=== PATIENT | male | born 1965 | race Caucasian/White ===

== ENCOUNTER 2020-01-14 11:26 | Inpatient (IN) | payer BC, OTHER ==
[2020-01-14] MEDS ORDERED: Morphine 4 MG/ML Syringe IVPUSH ONE ×2 (11:42→13:41)
[2020-01-14] MEDS ORDERED: Ondansetron 4 MG/2 ML SDV IVPUSH ONE (11:42)
[2020-01-14] MEDS ORDERED: Sodium Chloride 0.9% 10 ML Syringe FLUSH PRN (11:42)
[2020-01-14] MEDS ORDERED: Sodium Chloride 0.9% 2.5 ML Syringe FLUSH PRN (11:42)
[2020-01-14] MEDS ORDERED: Famotidine 20 MG/2 ML SDV IVPUSH ONE (11:44)
--- NOTE | 2020-01-14 11:48 | EDM.PDOC ---
ED HPI GENERAL MEDICAL PROBLEM - General Chief Complaint: Abdominal Pain Stated Complaint: EMS ARRIVAL Time Seen by Provider: 01/14/20 11:35 - History of Present Illness INITIAL COMMENTS - FREE TEXT/NARRATIVE: 54-year-old male who denies past history who is presenting with epigastric pain. Patient reports 8 out of 10 burning and wiggling epigastric pain that does not radiate but is associated with nausea and one episode of clear emesis patient's last bowel movement was sometime yesterday doesn't recall any blood or black tarry contents. Patient denies fevers or chills he denies chest pain or fever. He reports that he has had some less severe episodes on and off for some time but it has never been this bad he can't recall any specific triggers for these episodes. Right now no exacerbating or alleviating factors or other associated symptoms. Patient denies a prior history of abdominal surgery he does smoke regularly. Denies other drugs. Abdominal Pain Score (Numeric/FACES): 9 - Related Data Allergies Allergy/AdvReac Type Severity Reaction Status Date / Time No Known Allergies Allergy Verified 01/14/20 11:43 Home Meds: Home Meds . [No Known Home Meds] 07/30/15 [History] Past Medical History - Past Surgical History Other Musculoskeletal Surgeries/Procedures:: rt ankle surg. Social & Family History - Family History Family Medical History: Noncontributory ED ROS GENERAL - Review of Systems Review Of Systems: See Below Free Text/Narrative/Comment: General: No fever. Skin: No rash. Eyes: No vision problems. ENT: No sore throat. Neck: No neck stiffness. Respiratory: No shortness of breath. Cardiac: No chest pain. Gastrointestinal: No nausea, vomiting or abdominal pain. Urinary: No dysuria. Musculoskeletal: No myalgias/arthralgias. Neurologic: 3 times over the last several weeks he will experience a sudden episode of right sided face and body numbness that lasts a few minutes before resolving spontaneously there is no clear trigger he last experienced this type of episode yesterday. ED EXAM, GENERAL - Physical Exam Exam: See Below Free Text/Narrative:: General Appearance: No acute distress, appears comfortable HEENT: Normocephalic/atraumatic, sclera anicteric, mucous membranes moist Neck: Normal range of motion Chest and Lungs: Bilateral breath sounds, clear to auscultation Cardiovascular: Regular rate and rhythm, no murmur Abdomen: Soft, nondistended, epigastric and right upper quadrant tenderness without guarding or rebound. Musculoskeletal: No edema or tenderness Neurologic: Awake, alert, no obvious deficits, moving all extremities Psychiatric: Appropriate, cooperative Course - Vital Signs Last Recorded V/S: Last Vital Signs Temp 98.7 F 01/14/20 11:44 Pulse 61 01/14/20 11:44 Resp 17 01/14/20 11:44 BP 146/68 H 01/14/20 11:44 Pulse Ox 98 01/14/20 11:44 - Orders/Labs/Meds Orders: Active Orders 24 hr Category Date Time Status EKG Documentation Completion [RC] STAT Care 01/14/20 11:43 Active Sodium Chloride 0.9% [Saline Flush] Med 01/14/20 11:42 Active 10 ml FLUSH ASDIRECTED PRN Sodium Chloride 0.9% [Saline Flush] Med 01/14/20 11:42 Active 2.5 ml FLUSH ASDIRECTED PRN Saline Lock Insert [OM.PC] Stat Oth 01/14/20 11:42 Ordered Medication Orders Sodium Chloride (Saline Flush) 10 ml FLUSH ASDIRECTED PRN PRN Reason: Keep Vein Open Last Admin: 01/14/20 11:58 Dose: 10 ml Documented by: PHILLIP Sodium Chloride (Saline Flush) 2.5 ml FLUSH ASDIRECTED PRN PRN Reason: Keep Vein Open Last Admin: 01/14/20 11:58 Dose: 2.5 ml Documented by: PHILLIP Labs: Laboratory Tests 01/14/20 01/14/20 Range/Units 11:58 11:58 WBC 10.66 (4.0-11.0) K/uL RBC 4.59 (4.50-5.90) M/uL Hgb 14.5 (13.0-17.0) g/dL Hct 44.2 (38.0-50.0) % MCV 96.3 (80.0-98.0) fL MCH 31.6 (27.0-32.0) pg MCHC 32.8 (31.0-37.0) g/dL RDW Std Deviation 45.8 (28.0-62.0) fl RDW Coeff of Jenny 13 (11.0-15.0) % Plt Count 368 (150-400) K/uL MPV 9.50 (7.40-12.00) fL Neut % (Auto) 65.7 (48.0-80.0) % Lymph % (Auto) 23.8 (16.0-40.0) % [place] % (Auto) 9.6 (0.0-15.0) % Eos % (Auto) 0.8 (0.0-7.0) % Baso % (Auto) 0.1 (0.0-1.5) % Neut # (Auto) 7.0 H (1.4-5.7) K/uL Lymph # (Auto) 2.5 H (0.6-2.4) K/uL [place] # (Auto) 1.0 H (0.0-0.8) K/uL Eos # (Auto) 0.1 (0.0-0.7) K/uL Baso # (Auto) 0.0 (0.0-0.1) K/uL Nucleated RBC % 0.0 /100WBC Nucleated RBCs # 0 K/uL Sodium 137 (136-148) mmol/L Potassium 4.6 (3.5-5.1) mmol/L Chloride 102 (98-107) mmol/L Carbon Dioxide 28.3 (21.0-32.0) mmol/L BUN 14 (7.0-18.0) mg/dL Creatinine 1.0 (0.8-1.3) mg/dL Est Cr Clr Drug Dosing 82.02 mL/min Estimated GFR (MDRD) > 60.0 ml/min Glucose 100 (74-106) mg/dL Calcium 9.0 (8.5-10.1) mg/dL Total Bilirubin 0.2 (0.2-1.0) mg/dL AST 13 L (15-37) IU/L ALT 22 (14-63) IU/L Alkaline Phosphatase 117 H (46-116) U/L Troponin I < 0.050 (0.000-0.056) ng/mL Total Protein 7.5 (6.4-8.2) g/dL Albumin 3.8 (3.4-5.0) g/dL Globulin 3.7 (2.6-4.0) g/dL Albumin/Globulin Ratio 1.0 (0.9-1.6) Lipase 747 H (73-393) U/L Meds: Medications Generic Name Dose Route Start Last Admin Trade Name Andres PRN Reason Stop Dose Admin Sodium Chloride 10 ml 01/14/20 11:42 01/14/20 11:58 Saline Flush FLUSH 10 ml ASDIRECTED PRN Administration Keep Vein Open Sodium Chloride 2.5 ml 01/14/20 11:42 01/14/20 11:58 Saline Flush FLUSH 2.5 ml ASDIRECTED PRN Administration Keep Vein Open Discontinued Medications Generic Name Dose Route Start Last Admin Trade Name Andres PRN Reason Stop Dose Admin Famotidine 20 mg 01/14/20 11:44 01/14/20 11:57 Pepcid IVPUSH 01/14/20 11:45 20 mg ONETIME ONE Administration Morphine Sulfate 4 mg 01/14/20 11:42 01/14/20 11:57 Morphine IVPUSH 01/14/20 11:43 4 mg ONETIME ONE Administration Ondansetron HCl 4 mg 01/14/20 11:42 01/14/20 11:58 Zofran IVPUSH 01/14/20 11:43 4 mg ONETIME ONE Administration Departure - Departure Time of Disposition: 13:24 Disposition: Admitted As Inpatient 64 Condition: Good Clinical Impression: Acute pancreatitis - Discharge Information *PRESCRIPTION DRUG MONITORING PROGRAM REVIEWED*: Not Applicable *COPY OF PRESCRIPTION DRUG MONITORING REPORT IN PATIENT RED: Not Applicable Forms: ED Department Discharge Sepsis Event Note (ED) - Focused Exam Vital Signs: Vital Signs Temp Pulse Resp BP Pulse Ox 01/14/20 11:44 98.7 F 61 17 146/68 H 98 - My Orders Last 24 Hours: My Active Orders 01/14/20 11:42 Sodium Chloride 0.9% [Saline Flush] 10 ml FLUSH ASDIRECTED PRN Sodium Chloride 0.9% [Saline Flush] 2.5 ml FLUSH ASDIRECTED PRN Saline Lock Insert [OM.PC] Stat 01/14/20 11:43 EKG Documentation Completion [RC] STAT - Assessment/Plan Last 24 Hours: My Active Orders 01/14/20 11:42 Sodium Chloride 0.9% [Saline Flush] 10 ml FLUSH ASDIRECTED PRN Sodium Chloride 0.9% [Saline Flush] 2.5 ml FLUSH ASDIRECTED PRN Saline Lock Insert [OM.PC] Stat 01/14/20 11:43 EKG Documentation Completion [RC] STAT Assessment:: 54-year-old male presenting with epigastric pain as described. Ulcer disease however multiple other etiologies considered ACS felt very unlikely but EKG and troponin pending chest x-ray to evaluate mediastinum and exclude pneumonia pneumothorax etc. but these are also felt unlikely. Right upper quadrant ultrasound to evaluate for biliary pathology. If patient has a white count and this is unremarkable would consider CT scan at that time. Regarding his neurologic symptoms right now his neurologic exam is normal but CT scan of the brain is been added. Patient does have some stroke risk factors and TIA may need to be considered however he has no symptoms at this time we can readdress this when his abdominal complaint is complete. Pt's labs demonstrate findings of acute pancreatitis. US is w/out findings of biliary pathology, no CBD dilitation etc. No signs of pseudocyst noted on pancreatic portion of US. WBC is good, no fever, nothing that suggests necrosis. Will push patient some on etOH use. PT will likely need admission, NPO, IVF but will readdress. 1322: Patient is adamant that he only drinks alcohol very occasionally and has not had alcohol for several months. Patient discussed in full with the hospitalist team and will admit for acute pancreatitis.
--- NOTE | 2020-01-14 12:33 | CR ---
Indication: Epigastric pain shortness of breath Technique: PA and lateral views chest Comparison: None Findings: There is mild hyperinflation and chronic interstitial change with biapical pleural thickening. There is no dense consolidation, effusion, or pneumothorax. The cardiac silhouette is within normal limits. The bony thorax is grossly intact. Impression: Mild chronic interstitial changes and hyperinflation without acute cardiopulmonary abnormality. Dictated by Tonny Maurice MD @ Jan 14 2020 12:31PM Signed by Dr. Tonny Maurice @ Jan 14 2020 12:33PM
--- NOTE | 2020-01-14 12:40 | US ---
Indication: Right upper quadrant abdomen pain TECHNIQUE: Ultrasound abdomen limited. Sonographic images of the right upper quadrant were obtained using daigle-scale and color Doppler images. Comparison: None FINDINGS: Liver: Normal in size and echotexture. No masses. No intrahepatic biliary dilatation. Gallbladder: No stones or sludge. Normal wall thickness. No pericholecystic fluid. Common bile duct: 2.3 mm. Pancreas: Normal. The IVC and aorta are otherwise grossly unremarkable. The right kidney is grossly unremarkable in echotexture without evidence of hydronephrosis or shadowing calculus. Incidental note is made of somewhat fluid distended transverse colon in the central upper abdomen. Impression: Unremarkable right upper quadrant ultrasound. Incidental note made of mildly fluid distended colon within the central upper abdomen. Correlate with history of colitis symptoms if there is persistent concern. Dictated by Tonny Maurice MD @ Jan 14 2020 12:33PM Signed by Dr. Tonny Maurice @ Jan 14 2020 12:39PM
[2020-01-14 12:44] LABS: BLOOD UREA NITROGEN,BUN 14 mg/dL (7.0-18.0); CARBON DIOXIDE,CO2 28.3 mmol/L (21.0-32.0); CHLORIDE,CL 102 mmol/L (98-107); GLUCOSE RANDOM 100 mg/dL (74-106); LIPASE 747 U/L (73-393); POTASSIUM,K 4.6 mmol/L (3.5-5.1); SODIUM,NA 137 mmol/L (136-148)
--- NOTE | 2020-01-14 12:46 | CT ---
INDICATION: Right-sided numbness. TECHNIQUE: CT head without contrast. COMPARISON: None. FINDINGS: CSF spaces: Within normal limits for age. Brain parenchyma: The daigle-white differentiation is normal. No sign of mass, hemorrhage, or midline shift. Skull base and calvarium: The visualized paranasal sinuses and mastoid air cells demonstrate no acute or significant findings. The visualized orbits are grossly unremarkable. No skull fractures. IMPRESSION: No acute intracranial abnormality. Please note that all CT scans at this facility use dose modulation, iterative reconstruction, and/or weight-based dosing when appropriate to reduce radiation dose to as low as reasonably achievable. Dictated by Jim Simms MD @ Jan 14 2020 12:42PM Signed by Dr. Jim Simms @ Jan 14 2020 12:46PM
[2020-01-14] MEDS ORDERED: Ondansetron 4 MG/2 ML SDV IVPUSH PRN (15:20)
[2020-01-14] MEDS ORDERED: Albuterol/Ipratropium 3.0-0.5 MG/3 ML Neb Soln NEB PRN (15:20)
--- NOTE | 2020-01-14 15:23 | PCM.HP.2 ---
H&P History of Present Illness - General Date of Service: 01/14/20 Admit Problem/Dx: Admission Diagnosis/Problem Admission Diagnosis/Problem Acute pancreatitis - History of Present Illness Initial Comments - Free Text/Narative: 54-year-old male with no significant PMH presenting with epigastric abdominal pain. Pain is 8/10 in proportion and is non-radiating in nature. Pain started 4 am this morning suddenly, it is associated with nausea and one episode of clear emesis, patient's last bowel movement was sometime yesterday doesn't recall any blood or black tarry contents. Patient states he has some dull pain last few weeks but he didn't think much of it Patient denies fevers or chills he denies chest pain or fever. Right now no exacerbating or alleviating factors or other associated symptoms. Patient denies a prior history of abdominal surgery he does smoke regularly. Denies other drugs, or alcohol abuse. LIpase was evleated, US abdomen did show possible colitis, Liver was unremarkable. Patient was admitted for further care, Abdominal Pain Score (Numeric/FACES): 9 - Related Data Allergies/Adverse Reactions: Allergies Allergy/AdvReac Type Severity Reaction Status Date / Time No Known Allergies Allergy Verified 01/14/20 16:21 Home Medications: Home Meds . [No Known Home Meds] 07/30/15 [History] Past Medical History - Infectious Disease History Infectious Disease History: Reports: None - Past Surgical History Other Musculoskeletal Surgeries/Procedures:: rt ankle surg. Social & Family History - Family History Family Medical History: Noncontributory - Tobacco Use Tobacco Use Status *Q: Unknown Ever Used Tobacco - Caffeine Use Caffeine Use: Reports: None H&P Review of Systems - Review of Systems: Review Of Systems: See Below General: Reports: Weakness. Denies: Fever, Chills, Malaise, Fatigue, Night Sweats Pulmonary: Denies: Shortness of Breath, Wheezing Cardiovascular: Denies: Chest Pain, Palpitations, Dyspnea on Exertion, Orthopnea Gastrointestinal: Reports: Abdominal Pain, Nausea, Vomiting. Denies: Anorexia, Black Stool, Bloody Stool, Constipation, Decreased Appetite Genitourinary: Denies: Dysuria, Frequency, Burning Musculoskeletal: Denies: Neck Pain, Shoulder Pain, Arm Pain Skin: Denies: Cyanosis, Jaundice, Mottled, Pallor Psychiatric: Denies: Confusion, Depression, Mood Lability Exam - Exam Exam: See Below - Vital Signs Vital Signs: Last Vital Signs Temp 36.3 C 01/14/20 13:39 Pulse 62 01/14/20 14:08 Resp 16 01/14/20 13:39 BP 153/87 H 01/14/20 14:08 Pulse Ox 97 01/14/20 14:08 Weight: 70.307 kg - Exam General: Alert, Oriented Neck: Supple, Trachea Midline Lungs: Clear to Auscultation, Normal Respiratory Effort Cardiovascular: Regular Rate, Regular Rhythm, Normal S1, Normal S2 GI/Abdominal Exam: Soft, No Distention, Tender, Abnormal Bowel Sounds. No: Normal Bowel Sounds, Non-Tender, No Organomegaly, Distended, Hepatomegaly, Splenomegaly (Male) Exam: No: Normal Inspection, Normal Prostate - Patient Data Lab Results Last 24 hrs: Laboratory Results - last 24 hr 01/14/20 01/14/20 01/14/20 Range/Units 11:58 11:58 13:57 WBC 10.66 (4.0-11.0) K/uL RBC 4.59 (4.50-5.90) M/uL Hgb 14.5 (13.0-17.0) g/dL Hct 44.2 (38.0-50.0) % MCV 96.3 (80.0-98.0) fL MCH 31.6 (27.0-32.0) pg MCHC 32.8 (31.0-37.0) g/dL RDW Std Deviation 45.8 (28.0-62.0) fl RDW Coeff of Jenny 13 (11.0-15.0) % Plt Count 368 (150-400) K/uL MPV 9.50 (7.40-12.00) fL Neut % (Auto) 65.7 (48.0-80.0) % Lymph % (Auto) 23.8 (16.0-40.0) % [place] % (Auto) 9.6 (0.0-15.0) % Eos % (Auto) 0.8 (0.0-7.0) % Baso % (Auto) 0.1 (0.0-1.5) % Neut # (Auto) 7.0 H (1.4-5.7) K/uL Lymph # (Auto) 2.5 H (0.6-2.4) K/uL [place] # (Auto) 1.0 H (0.0-0.8) K/uL Eos # (Auto) 0.1 (0.0-0.7) K/uL Baso # (Auto) 0.0 (0.0-0.1) K/uL Nucleated RBC % 0.0 /100WBC Nucleated RBCs # 0 K/uL Sodium 137 (136-148) mmol/L Potassium 4.6 (3.5-5.1) mmol/L Chloride 102 (98-107) mmol/L Carbon Dioxide 28.3 (21.0-32.0) mmol/L BUN 14 (7.0-18.0) mg/dL Creatinine 1.0 (0.8-1.3) mg/dL Est Cr Clr Drug Dosing 82.02 mL/min Estimated GFR (MDRD) > 60.0 ml/min Glucose 100 (74-106) mg/dL Calcium 9.0 (8.5-10.1) mg/dL Total Bilirubin 0.2 (0.2-1.0) mg/dL AST 13 L (15-37) IU/L ALT 22 (14-63) IU/L Alkaline Phosphatase 117 H (46-116) U/L Troponin I < 0.050 (0.000-0.056) ng/mL Total Protein 7.5 (6.4-8.2) g/dL Albumin 3.8 (3.4-5.0) g/dL Globulin 3.7 (2.6-4.0) g/dL Albumin/Globulin Ratio 1.0 (0.9-1.6) Lipase 747 H (73-393) U/L SARS-CoV-2 RNA (CHRYSTAL) NEGATIVE (NEGATIVE) Result Diagrams: 01/14/20 11:58 01/14/20 11:58 Sepsis Event Note - Evaluation Sepsis Screening Result: No Definite Risk - Focused Exam Vital Signs: Vital Signs Temp Pulse Resp BP Pulse Ox 01/14/20 14:08 62 153/87 H 97 01/14/20 13:39 36.3 C 53 L 16 165/78 H 98 01/14/20 11:44 37.1 C 61 17 146/68 H 98 - Problem List (1) Colitis SNOMED Code(s): 46716045 ICD Code: K52.9 - NONINFECTIVE GASTROENTERITIS AND COLITIS, UNSPECIFIED Status: Acute Current Visit: Yes (2) Acute pancreatitis SNOMED Code(s): 498223345 ICD Code: K85.90 - ACUTE PANCREATITIS WITHOUT NECROSIS OR INFECTION, UNSP Status: Acute Current Visit: Yes Problem List Initiated/Reviewed/Updated: Yes Orders Last 24hrs: Active Orders 24 hr Category Date Time Status Patient Status [ADT] Routine ADT 01/14/20 13:25 Active Ambulate [RC] ASDIRECTED Care 01/14/20 15:14 Ordered Antiembolic Devices [RC] PER UNIT ROUTINE Care 01/14/20 15:22 Ordered Oxygen Therapy [RC] PRN Care 01/14/20 15:14 Ordered Pulse Oximetry [RC] PRN Care 01/14/20 15:14 Ordered RT Aerosol Therapy [RC] ASDIRECTED Care 01/14/20 15:23 Ordered VTE/DVT Education [RC] PER UNIT ROUTINE Care 01/14/20 15:14 Ordered Vital Signs [RC] Q4H Care 01/14/20 15:14 Ordered Nothing per Oral Now Diet [DIET] Diet 01/14/20 Dinner Ordered Albuterol/Ipratropium [DuoNeb 3.0-0.5 MG/3 ML] Med 01/14/20 15:20 Ordered 3 ml NEB Q4HRRT PRN Lactated Ringers @ 125 MLS/HR(1000ml) Med 01/14/20 15:30 Ordered Lactated Ringers [Ringers, Lactated] 1,000 ml IV ASDIRECTED Morphine Med 01/14/20 15:20 Ordered 2 mg IVPUSH Q4H PRN Ondansetron [Zofran] Med 01/14/20 15:20 Ordered 4 mg IVPUSH Q4H PRN Pantoprazole [ProTONIX IV] Med 01/15/20 09:00 Ordered 40 mg IV DAILY Sodium Chloride 0.9% [Saline Flush] Med 01/14/20 11:42 Active 10 ml FLUSH ASDIRECTED PRN Sodium Chloride 0.9% [Saline Flush] Med 01/14/20 11:42 Active 2.5 ml FLUSH ASDIRECTED PRN Saline Lock Insert [OM.PC] Stat Oth 01/14/20 11:42 Ordered Sequential Compression Device [OM.PC] Per Unit Routine Oth 01/14/20 15:15 Orde red Resuscitation Status Routine Resus Stat 01/14/20 15:14 Ordered Medication Orders Sodium Chloride (Saline Flush) 10 ml FLUSH ASDIRECTED PRN PRN Reason: Keep Vein Open Last Admin: 01/14/20 11:58 Dose: 10 ml Documented by: PHILLIP Sodium Chloride (Saline Flush) 2.5 ml FLUSH ASDIRECTED PRN PRN Reason: Keep Vein Open Last Admin: 01/14/20 11:58 Dose: 2.5 ml Documented by: MURPAT Assessment/Plan Comment:: 54 y/o M admitted for abdominal pain Elevated lipase from Possible colitis vs pancreatitis US abdomen noted NPO for now IV fluids Morphine for pain SCD fpr DVT ppx Zofran for N/V
[2020-01-14] MEDS: Lactated Ringers 1,000 ML IV SCH (16:09)
[2020-01-14] MEDS ORDERED: FLU VACC QS2020-21(6MOS UP)/PF 60 MCG/0.5 ML SYRINGE IM ONE (16:30)
[2020-01-14] MEDS ORDERED: metroNIDAZOLE/Normal Saline 500 MG in Premix Bag 1 BAG IV SCH (17:45)
[2020-01-14] MEDS: Ciprofloxacin in D5W 400 MG in Premix Bag 1 BAG IV SCH ×2 (18:19)
[2020-01-14] MEDS: Morphine 10 MG/ML Syringe IVPUSH PRN (18:22)
[2020-01-14] MEDS: Nicotine 14 MG/24 Hr Patch TRDERM SCH (18:24)
[2020-01-14] MEDS: metroNIDAZOLE/Normal Saline 500 MG in Premix Bag 1 BAG IV SCH (20:06)
[2020-01-15] MEDS: Morphine 10 MG/ML Syringe IVPUSH PRN ×2 (03:38→11:00)
[2020-01-15] MEDS: metroNIDAZOLE/Normal Saline 500 MG in Premix Bag 1 BAG IV SCH ×2 (03:42→11:20)
[2020-01-15] MEDS: Ciprofloxacin in D5W 400 MG in Premix Bag 1 BAG IV SCH ×4 (05:38→19:13)
[2020-01-15] MEDS: Lactated Ringers 1,000 ML IV SCH (05:38)
[2020-01-15 07:10] LABS: BLOOD UREA NITROGEN,BUN 11 mg/dL (7.0-18.0); CARBON DIOXIDE,CO2 29.1 mmol/L (21.0-32.0); CHLORIDE,CL 103 mmol/L (98-107); GLUCOSE RANDOM 92 mg/dL (74-106); LIPASE 119 U/L (73-393); POTASSIUM,K 3.5 mmol/L (3.5-5.1); SODIUM,NA 138 mmol/L (136-148)
[2020-01-15] MEDS ORDERED: Pantoprazole 40 MG Vial IV SCH (09:00)
[2020-01-15] MEDS ORDERED: FLU VACC QS2020-21(6MOS UP)/PF 60 MCG/0.5 ML SYRINGE IM ONE (09:00)
[2020-01-15] MEDS: Nicotine 14 MG/24 Hr Patch TRDERM SCH (09:32)
--- NOTE | 2020-01-15 13:42 | PCM.PN ---
<Linda Ko - Last Filed: 01/15/20 13:36> - General Info Date of Service: 01/15/20 - Review of Systems General: Reports: No Symptoms HEENT: Reports: No Symptoms Pulmonary: Reports: No Symptoms Cardiovascular: Reports: No Symptoms Gastrointestinal: Reports: Abdominal Pain. Denies: Nausea, Vomiting Genitourinary: Reports: No Symptoms Musculoskeletal: Reports: No Symptoms Skin: Reports: No Symptoms Neurological: Reports: No Symptoms Psychiatric: Reports: No Symptoms - Patient Data Vitals - Most Recent: Last Vital Signs Temp 97.8 F 01/15/20 12:00 Pulse 62 01/15/20 12:00 Resp 16 01/15/20 12:00 BP 130/77 01/15/20 12:00 Pulse Ox 98 01/15/20 12:00 Weight - Most Recent: 70.307 kg I&O - Last 24 Hours: Intake & Output 01/14/20 01/15/20 01/15/20 22:59 06:59 14:59 Intake Total 100 1200 Output Total 800 Balance 100 400 Lab Results Last 24 Hours: Laboratory Results - last 24 hr 01/14/20 01/14/20 01/15/20 Range/Units 13:30 13:57 05:16 WBC 9.73 (4.0-11.0) K/uL RBC 4.37 L (4.50-5.90) M/uL Hgb 13.8 (13.0-17.0) g/dL Hct 42.2 (38.0-50.0) % MCV 96.6 (80.0-98.0) fL MCH 31.6 (27.0-32.0) pg MCHC 32.7 (31.0-37.0) g/dL RDW Std Deviation 47.0 (28.0-62.0) fl RDW Coeff of Jenny 13 (11.0-15.0) % Plt Count 374 (150-400) K/uL MPV 9.70 (7.40-12.00) fL Neut % (Auto) 49.1 (48.0-80.0) % Lymph % (Auto) 38.1 (16.0-40.0) % [place] % (Auto) 11.3 (0.0-15.0) % Eos % (Auto) 1.3 (0.0-7.0) % Baso % (Auto) 0.2 (0.0-1.5) % Neut # (Auto) 4.8 (1.4-5.7) K/uL Lymph # (Auto) 3.7 H (0.6-2.4) K/uL [place] # (Auto) 1.1 H (0.0-0.8) K/uL Eos # (Auto) 0.1 (0.0-0.7) K/uL Baso # (Auto) 0.0 (0.0-0.1) K/uL Nucleated RBC % 0.0 /100WBC Nucleated RBCs # 0 K/uL Sodium (136-148) mmol/L Potassium (3.5-5.1) mmol/L Chloride (98-107) mmol/L Carbon Dioxide (21.0-32.0) mmol/L BUN (7.0-18.0) mg/dL Creatinine (0.8-1.3) mg/dL Est Cr Clr Drug Dosing mL/min Estimated GFR (MDRD) ml/min Glucose (74-106) mg/dL Calcium (8.5-10.1) mg/dL Phosphorus (2.6-4.7) mg/dL Magnesium (1.8-2.4) mg/dL Lipase (73-393) U/L Urine Color YELLOW Urine Appearance SLT CLOUDY Urine pH 7.0 (5.0-8.0) Ur Specific [place] 1.015 (1.001-1.035) Urine Protein NEGATIVE (NEGATIVE) mg/dL Urine Glucose (UA) NEGATIVE (NEGATIVE) mg/dL Urine Ketones NEGATIVE (NEGATIVE) mg/dL Urine Occult Blood TRACE-INTACT H (NEGATIVE) Urine Nitrite NEGATIVE (NEGATIVE) Urine Bilirubin NEGATIVE (NEGATIVE) Urine Urobilinogen 0.2 (<2.0) EU/dL Ur Leukocyte Esterase NEGATIVE (NEGATIVE) Urine RBC 0-3 (0-2/HPF) Urine WBC 0-2 (0-5/HPF) Ur Epithelial Cells RARE (NONE-FEW) Amorphous Sediment LIGHT (NEGATIVE) Urine Bacteria FEW (NEGATIVE) SARS-CoV-2 RNA (CHRYSTAL) NEGATIVE (NEGATIVE) 01/15/20 Range/Units 05:16 WBC (4.0-11.0) K/uL RBC (4.50-5.90) M/uL Hgb (13.0-17.0) g/dL Hct (38.0-50.0) % MCV (80.0-98.0) fL MCH (27.0-32.0) pg MCHC (31.0-37.0) g/dL RDW Std Deviation (28.0-62.0) fl RDW Coeff of Jenny (11.0-15.0) % Plt Count (150-400) K/uL MPV (7.40-12.00) fL Neut % (Auto) (48.0-80.0) % Lymph % (Auto) (16.0-40.0) % [place] % (Auto) (0.0-15.0) % Eos % (Auto) (0.0-7.0) % Baso % (Auto) (0.0-1.5) % Neut # (Auto) (1.4-5.7) K/uL Lymph # (Auto) (0.6-2.4) K/uL [place] # (Auto) (0.0-0.8) K/uL Eos # (Auto) (0.0-0.7) K/uL Baso # (Auto) (0.0-0.1) K/uL Nucleated RBC % /100WBC Nucleated RBCs # K/uL Sodium 138 (136-148) mmol/L Potassium 3.5 (3.5-5.1) mmol/L Chloride 103 (98-107) mmol/L Carbon Dioxide 29.1 (21.0-32.0) mmol/L BUN 11 (7.0-18.0) mg/dL Creatinine 1.0 (0.8-1.3) mg/dL Est Cr Clr Drug Dosing 82.02 mL/min Estimated GFR (MDRD) > 60.0 ml/min Glucose 92 (74-106) mg/dL Calcium 8.6 (8.5-10.1) mg/dL Phosphorus 3.4 (2.6-4.7) mg/dL Magnesium 1.8 (1.8-2.4) mg/dL Lipase 119 (73-393) U/L Urine Color Urine Appearance Urine pH (5.0-8.0) Ur Specific [place] (1.001-1.035) Urine Protein (NEGATIVE) mg/dL Urine Glucose (UA) (NEGATIVE) mg/dL Urine Ketones (NEGATIVE) mg/dL Urine Occult Blood (NEGATIVE) Urine Nitrite (NEGATIVE) Urine Bilirubin (NEGATIVE) Urine Urobilinogen (<2.0) EU/dL Ur Leukocyte Esterase (NEGATIVE) Urine RBC (0-2/HPF) Urine WBC (0-5/HPF) Ur Epithelial Cells (NONE-FEW) Amorphous Sediment (NEGATIVE) Urine Bacteria (NEGATIVE) SARS-CoV-2 RNA (CHRYSTAL) (NEGATIVE) Med Orders - Current: Current Medications Albuterol/Ipratropium (Duoneb 3.0-0.5 Mg/3 Ml) 3 ml NEB Q4HRRT PRN PRN Reason: Shortness Of Breath/wheezing Lactated Ringer's (Ringers, Lactated) 1,000 mls @ 125 mls/hr IV ASDIRECTED [facility] Last Admin: 01/15/20 05:38 Dose: 125 mls/hr Documented by: Ciprofloxacin/Dextrose 400 mg/ (Premix) 200 mls @ 200 mls/hr IV Q12H [facility] Last Admin: 01/15/20 05:38 Dose: 200 mls/hr Documented by: Metronidazole 500 mg/ Premix 100 mls @ 100 mls/hr IV Q8H [facility] Last Admin: 01/15/20 11:20 Dose: 100 mls/hr Documented by: Morphine Sulfate (Morphine) 2 mg IVPUSH Q4H PRN PRN Reason: Pain (severe 7-10) Stop: 01/15/20 15:22 Last Admin: 01/15/20 11:00 Dose: 2 mg Documented by: Nicotine (Habitrol) 14 mg TRDERM DAILY [facility] Last Admin: 01/15/20 09:32 Dose: 14 mg Documented by: Ondansetron HCl (Zofran) 4 mg IVPUSH Q4H PRN PRN Reason: Nausea/Vomiting Pantoprazole Sodium (Protonix Iv) 40 mg IV DAILY [facility] Last Admin: 01/15/20 09:31 Dose: 40 mg Documented by: Sodium Chloride (Saline Flush) 10 ml FLUSH ASDIRECTED PRN PRN Reason: Keep Vein Open Last Admin: 01/14/20 11:58 Dose: 10 ml Documented by: Sodium Chloride (Saline Flush) 2.5 ml FLUSH ASDIRECTED PRN PRN Reason: Keep Vein Open Last Admin: 01/14/20 11:58 Dose: 2.5 ml Documented by: Discontinued Medications Famotidine (Pepcid) 20 mg IVPUSH ONETIME ONE Stop: 01/14/20 11:45 Last Admin: 01/14/20 11:57 Dose: 20 mg Documented by: Metronidazole 500 mg/ Premix 100 mls @ 100 mls/hr IV Q8H [facility] Last Admin: 01/14/20 19:11 Dose: Not Given Documented by: Influenza Virus Vaccine (Pharmacy To Dose - Influenza Vaccine) 1 each IM ONETIME ONE Stop: 01/14/20 16:12 Influenza Virus Vaccine (Fluzone Quad Syringe) 60 mcg IM .ONCE ONE Stop: 01/14/20 16:31 Influenza Virus Vaccine (Fluzone Quad Syringe) 60 mcg IM .ONCE ONE Stop: 01/15/20 09:01 Morphine Sulfate (Morphine) 4 mg IVPUSH ONETIME ONE Stop: 01/14/20 11:43 Last Admin: 01/14/20 11:57 Dose: 4 mg Documented by: Morphine Sulfate (Morphine) 4 mg IVPUSH ONETIME ONE Stop: 01/14/20 13:42 Last Admin: 01/14/20 13:52 Dose: 4 mg Documented by: Ondansetron HCl (Zofran) 4 mg IVPUSH ONETIME ONE Stop: 01/14/20 11:43 Last Admin: 01/14/20 11:58 Dose: 4 mg Documented by: - Exam General: Alert, Oriented, Cooperative, No Acute Distress HEENT: Pupils Equal, Pupils Reactive, EOMI, Mucous Membr. Moist/[place] Neck: Supple, Trachea Midline, No JVD, No Thyromegaly, Lymphadenopathy Lungs: Clear to Auscultation, Normal Respiratory Effort Cardiovascular: Regular Rate, Regular Rhythm, No Murmurs GI/Abdominal Exam: Normal Bowel Sounds, Soft, Tender (Male) Exam: No Hernia, Normal Inspection Extremities: Normal Inspection Peripheral Pulses: 2+: Dorsalis Pedis (L), Dorsalis Pedis (R) Skin: Warm, Dry Neurological: No New Focal Deficit Psy/Mental Status: Alert, Normal Affect, Normal Mood Sepsis Event Note - Evaluation Sepsis Screening Result: No Definite Risk - Focused Exam Vital Signs: Vital Signs Temp Pulse Resp BP Pulse Ox 01/15/20 12:00 97.8 F 62 16 130/77 98 01/15/20 07:05 97.3 F 82 17 100/57 L 94 L 01/15/20 04:33 97.8 F 59 L 17 111/62 90 L - Problem List & Annotations (1) Acute pancreatitis SNOMED Code(s): 661904051 Code(s): K85.90 - ACUTE PANCREATITIS WITHOUT NECROSIS OR INFECTION, UNSP Status: Acute (2) Colitis SNOMED Code(s): 32952575 Code(s): K52.9 - NONINFECTIVE GASTROENTERITIS AND COLITIS, UNSPECIFIED Status: Acute - Problem List Review Problem List Initiated/Reviewed/Updated: Yes - My Orders Last 24 Hours: My Active Orders 01/14/20 16:45 Nicotine [Habitrol] 14 mg TRDERM DAILY 01/15/20 Lunch Advance Diet Instructions [DIET] Clear Liquid Diet [DIET] - Plan Plan:: 54 y/o M admitted for abdominal pain Elevated lipase from Possible colitis vs pancreatitis. 1. lipase has normalized, US Abdo- norml panc. Will continue have pt follow lclear liquid diet and advance as tolerated. Pain this morning appears to be gastric. Started PPI and will advance diet as tolerated. Morphine for pain. SCD fpr DVT ppx, nicotine patch Zofran for N/V <Lucretia Bean - Last Filed: 01/16/20 13:24> - Patient Data Vitals - Most Recent: Last Vital Signs Temp 36.6 C 01/15/20 15:57 Pulse 65 01/15/20 15:57 Resp 18 01/15/20 15:57 BP 141/65 H 01/15/20 15:57 Pulse Ox 98 01/15/20 12:00 I&O - Last 24 Hours: Intake & Output 01/15/20 01/16/20 01/16/20 22:59 06:59 14:59 Intake Total 1350 Output Total 1500 Balance -150 Med Orders - Current: Current Medications Discontinued Medications Albuterol/Ipratropium (Duoneb 3.0-0.5 Mg/3 Ml) 3 ml NEB Q4HRRT PRN PRN Reason: Shortness Of Breath/wheezing Famotidine (Pepcid) 20 mg IVPUSH ONETIME ONE Stop: 01/14/20 11:45 Last Admin: 01/14/20 11:57 Dose: 20 mg Documented by: Lactated Ringer's (Ringers, Lactated) 1,000 mls @ 125 mls/hr IV ASDIRECTED [facility] Last Admin: 01/15/20 05:38 Dose: 125 mls/hr Documented by: Ciprofloxacin/Dextrose 400 mg/ (Premix) 200 mls @ 200 mls/hr IV Q12H [facility] Last Admin: 01/15/20 19:13 Dose: Not Given Documented by: Metronidazole 500 mg/ Premix 100 mls @ 100 mls/hr IV Q8H [facility] Last Admin: 01/14/20 19:11 Dose: Not Given Documented by: Metronidazole 500 mg/ Premix 100 mls @ 100 mls/hr IV Q8H [facility] Last Admin: 01/15/20 11:20 Dose: 100 mls/hr Documented by: Influenza Virus Vaccine (Pharmacy To Dose - Influenza Vaccine) 1 each IM ONETIME ONE Stop: 01/14/20 16:12 Last Admin: 01/15/20 19:11 Dose: Not Given Documented by: Influenza Virus Vaccine (Fluzone Quad Syringe) 60 mcg IM .ONCE ONE Stop: 01/14/20 16:31 Last Admin: 01/15/20 19:12 Dose: Not Given Documented by: Influenza Virus Vaccine (Fluzone Quad [id number] Syringe) 60 mcg IM .ONCE ONE Stop: 01/15/20 09:01 Last Admin: 01/15/20 19:13 Dose: Not Given Documented by: Morphine Sulfate (Morphine) 4 mg IVPUSH ONETIME ONE Stop: 01/14/20 11:43 Last Admin: 01/14/20 11:57 Dose: 4 mg Documented by: Morphine Sulfate (Morphine) 4 mg IVPUSH ONETIME ONE Stop: 01/14/20 13:42 Last Admin: 01/14/20 13:52 Dose: 4 mg Documented by: Morphine Sulfate (Morphine) 2 mg IVPUSH Q4H PRN PRN Reason: Pain (severe 7-10) Stop: 01/15/20 15:22 Last Admin: 01/15/20 11:00 Dose: 2 mg Documented by: Nicotine (Habitrol) 14 mg TRDERM DAILY [facility] Last Admin: 01/15/20 09:32 Dose: 14 mg Documented by: Ondansetron HCl (Zofran) 4 mg IVPUSH ONETIME ONE Stop: 01/14/20 11:43 Last Admin: 01/14/20 11:58 Dose: 4 mg Documented by: Ondansetron HCl (Zofran) 4 mg IVPUSH Q4H PRN PRN Reason: Nausea/Vomiting Pantoprazole Sodium (Protonix Iv) 40 mg IV DAILY [facility] Last Admin: 01/15/20 09:31 Dose: 40 mg Documented by: Sodium Chloride (Saline Flush) 10 ml FLUSH ASDIRECTED PRN PRN Reason: Keep Vein Open Last Admin: 01/14/20 11:58 Dose: 10 ml Documented by: Sodium Chloride (Saline Flush) 2.5 ml FLUSH ASDIRECTED PRN PRN Reason: Keep Vein Open Last Admin: 01/14/20 11:58 Dose: 2.5 ml Documented by: - Problem List & Annotations (1) Colitis SNOMED Code(s): 82035474 Code(s): K52.9 - NONINFECTIVE GASTROENTERITIS AND COLITIS, UNSPECIFIED Status: Acute (2) Acute pancreatitis SNOMED Code(s): 980099762 Code(s): K85.90 - ACUTE PANCREATITIS WITHOUT NECROSIS OR INFECTION, UNSP Status: Acute - Plan Plan:: I have seen and evaluated the patient and agree with the residents note unless specified in my note
[2020-01-15 15:58] VITALS: BP 141/65; PULSE 65
--- NOTE | 2020-01-15 17:51 | PCM.DCSUM1 ---
<Linda Ko - Last Filed: 01/15/20 17:58> Discharge Summary - Hospital Course Brief History: 54-year-old male who denies past history who is presenting with epigastric pain. Patient reports 8 out of 10 burning and wiggling epigastric pain that does not radiate but is associated with nausea and one episode of clear emesis patient's last bowel movement was sometime yesterday doesn't recall any blood or black tarry contents. Patient denies fevers or chills he denies chest pain or fever. He reports that he has had some less severe episodes on and off for some time but it has never been this bad he can't recall any specific triggers for these episodes. Right now no exacerbating or alleviating factors or other associated symptoms. Patient denies a prior history of abdominal surgery he does smoke regularly. Denies other drugs. Diagnosis: Stroke: No - Discharge Data Discharge Date: 01/15/20 Discharge Disposition: Home, Self-Care 01 Condition: Stable - Referral to Home Health Primary Care Physician: PCP None - Discharge Diagnosis/Problem(s) (1) Acute pancreatitis SNOMED Code(s): 197762251 ICD Code: K85.90 - ACUTE PANCREATITIS WITHOUT NECROSIS OR INFECTION, UNSP Status: Acute (2) Colitis SNOMED Code(s): 57161243 ICD Code: K52.9 - NONINFECTIVE GASTROENTERITIS AND COLITIS, UNSPECIFIED Status: Acute - Patient Summary/Data Hospital Course: Pt was admitted with abdominal pain that has been intermittent but most severe in the last day which brought him to the hospital. Was found to have elevated lipase, thought to have possible pancreatitis vs. colitis per imaging. Pt was kept NPO given fluids and pain medication. Re-evaluated this morning symptoms had improved. Pt transitioned from liquid diet to soft mechanical. Is doing well, states after being started on pantoprazole he feels muich better. Pt ready for discharge. Will be sent home with zofran for nasuea, pantoprazole for 2 weeks and ciprofloxacin and Flagyl for 1 week. Pt is to follow up closely with PCP. - Patient Instructions Diet: Regular Diet as Tolerated Activity: As Tolerated Notify Provider of: Fever, Increased Pain, Swelling and Redness, Drainage, Nausea and/or Vomiting - Discharge Plan *PRESCRIPTION DRUG MONITORING PROGRAM REVIEWED*: Not Applicable *COPY OF PRESCRIPTION DRUG MONITORING REPORT IN PATIENT RED: Not Applicable Prescriptions/Med Rec: Ciprofloxacin 500 mg PO BID 7 Days #14 justyna..rec metroNIDAZOLE [Metronidazole] 500 mg PO Q8H 7 Days #21 tablet Ondansetron [Ondansetron ODT] 4 mg PO Q6H PRN 28 Days #7 tab.rapdis PRN Reason: Nausea Pantoprazole [ProTONIX] 40 mg PO DAILY 14 Days #14 tab.cr Home Medications: Home Meds Ciprofloxacin 500 mg PO BID 7 Days #14 justyna..rec 01/15/20 [Rx] Ondansetron [Ondansetron ODT] 4 mg PO Q6H PRN 28 Days #7 tab.rapdis 01/15/20 [Rx] Pantoprazole [ProTONIX] 40 mg PO DAILY 14 Days #14 tab.cr 01/15/20 [Rx] metroNIDAZOLE [Metronidazole] 500 mg PO Q8H 7 Days #21 tablet 01/15/20 [Rx] Oxygen Therapy Mode: Room Air Patient Handouts: Acute Pancreatitis, [id number], Colitis Forms: ED Department Discharge Referrals: Anabel Paul MD [Resident] - 01/28/20 9:30 am - Discharge Summary/Plan Comment DC Time >30 min.: No - Patient Data Vitals - Most Recent: Last Vital Signs Temp 97.9 F 01/15/20 15:57 Pulse 65 01/15/20 15:57 Resp 18 01/15/20 15:57 BP 141/65 H 01/15/20 15:57 Pulse Ox 98 01/15/20 12:00 Weight - Most Recent: 70.307 kg I&O - Last 24 hours: Intake & Output 01/15/20 01/15/20 01/15/20 06:59 14:59 22:59 Intake Total 1200 1350 Output Total 800 1500 Balance 400 -150 Lab Results - Last 24 hrs: Laboratory Results - last 24 hr 01/14/20 01/15/20 01/15/20 Range/Units 13:30 05:16 05:16 WBC 9.73 (4.0-11.0) K/uL RBC 4.37 L (4.50-5.90) M/uL Hgb 13.8 (13.0-17.0) g/dL Hct 42.2 (38.0-50.0) % MCV 96.6 (80.0-98.0) fL MCH 31.6 (27.0-32.0) pg MCHC 32.7 (31.0-37.0) g/dL RDW Std Deviation 47.0 (28.0-62.0) fl RDW Coeff of Jenny 13 (11.0-15.0) % Plt Count 374 (150-400) K/uL MPV 9.70 (7.40-12.00) fL Neut % (Auto) 49.1 (48.0-80.0) % Lymph % (Auto) 38.1 (16.0-40.0) % [place] % (Auto) 11.3 (0.0-15.0) % Eos % (Auto) 1.3 (0.0-7.0) % Baso % (Auto) 0.2 (0.0-1.5) % Neut # (Auto) 4.8 (1.4-5.7) K/uL Lymph # (Auto) 3.7 H (0.6-2.4) K/uL [place] # (Auto) 1.1 H (0.0-0.8) K/uL Eos # (Auto) 0.1 (0.0-0.7) K/uL Baso # (Auto) 0.0 (0.0-0.1) K/uL Nucleated RBC % 0.0 /100WBC Nucleated RBCs # 0 K/uL Sodium 138 (136-148) mmol/L Potassium 3.5 (3.5-5.1) mmol/L Chloride 103 (98-107) mmol/L Carbon Dioxide 29.1 (21.0-32.0) mmol/L BUN 11 (7.0-18.0) mg/dL Creatinine 1.0 (0.8-1.3) mg/dL Est Cr Clr Drug Dosing 82.02 mL/min Estimated GFR (MDRD) > 60.0 ml/min Glucose 92 (74-106) mg/dL Calcium 8.6 (8.5-10.1) mg/dL Phosphorus 3.4 (2.6-4.7) mg/dL Magnesium 1.8 (1.8-2.4) mg/dL Lipase 119 (73-393) U/L Urine Color YELLOW Urine Appearance SLT CLOUDY Urine pH 7.0 (5.0-8.0) Ur Specific [place] 1.015 (1.001-1.035) Urine Protein NEGATIVE (NEGATIVE) mg/dL Urine Glucose (UA) NEGATIVE (NEGATIVE) mg/dL Urine Ketones NEGATIVE (NEGATIVE) mg/dL Urine Occult Blood TRACE-INTACT H (NEGATIVE) Urine Nitrite NEGATIVE (NEGATIVE) Urine Bilirubin NEGATIVE (NEGATIVE) Urine Urobilinogen 0.2 (<2.0) EU/dL Ur Leukocyte Esterase NEGATIVE (NEGATIVE) Urine RBC 0-3 (0-2/HPF) Urine WBC 0-2 (0-5/HPF) Ur Epithelial Cells RARE (NONE-FEW) Amorphous Sediment LIGHT (NEGATIVE) Urine Bacteria FEW (NEGATIVE) Med Orders - Current: Current Medications Albuterol/Ipratropium (Duoneb 3.0-0.5 Mg/3 Ml) 3 ml NEB Q4HRRT PRN PRN Reason: Shortness Of Breath/wheezing Lactated Ringer's (Ringers, Lactated) 1,000 mls @ 125 mls/hr IV ASDIRECTED [facility] Last Admin: 01/15/20 05:38 Dose: 125 mls/hr Documented by: Ciprofloxacin/Dextrose 400 mg/ (Premix) 200 mls @ 200 mls/hr IV Q12H [facility] Last Admin: 01/15/20 05:38 Dose: 200 mls/hr Documented by: Metronidazole 500 mg/ Premix 100 mls @ 100 mls/hr IV Q8H [facility] Last Admin: 01/15/20 11:20 Dose: 100 mls/hr Documented by: Nicotine (Habitrol) 14 mg TRDERM DAILY [facility] Last Admin: 01/15/20 09:32 Dose: 14 mg Documented by: Ondansetron HCl (Zofran) 4 mg IVPUSH Q4H PRN PRN Reason: Nausea/Vomiting Pantoprazole Sodium (Protonix Iv) 40 mg IV DAILY [facility] Last Admin: 01/15/20 09:31 Dose: 40 mg Documented by: Sodium Chloride (Saline Flush) 10 ml FLUSH ASDIRECTED PRN PRN Reason: Keep Vein Open Last Admin: 01/14/20 11:58 Dose: 10 ml Documented by: Sodium Chloride (Saline Flush) 2.5 ml FLUSH ASDIRECTED PRN PRN Reason: Keep Vein Open Last Admin: 01/14/20 11:58 Dose: 2.5 ml Documented by: Discontinued Medications Famotidine (Pepcid) 20 mg IVPUSH ONETIME ONE Stop: 01/14/20 11:45 Last Admin: 01/14/20 11:57 Dose: 20 mg Documented by: Metronidazole 500 mg/ Premix 100 mls @ 100 mls/hr IV Q8H [facility] Last Admin: 01/14/20 19:11 Dose: Not Given Documented by: Influenza Virus Vaccine (Pharmacy To Dose - Influenza Vaccine) 1 each IM ONETIME ONE Stop: 01/14/20 16:12 Influenza Virus Vaccine (Fluzone Quad Syringe) 60 mcg IM .ONCE ONE Stop: 01/14/20 16:31 Influenza Virus Vaccine (Fluzone Quad Syringe) 60 mcg IM .ONCE ONE Stop: 01/15/20 09:01 Morphine Sulfate (Morphine) 4 mg IVPUSH ONETIME ONE Stop: 01/14/20 11:43 Last Admin: 01/14/20 11:57 Dose: 4 mg Documented by: Morphine Sulfate (Morphine) 4 mg IVPUSH ONETIME ONE Stop: 01/14/20 13:42 Last Admin: 01/14/20 13:52 Dose: 4 mg Documented by: Morphine Sulfate (Morphine) 2 mg IVPUSH Q4H PRN PRN Reason: Pain (severe 7-10) Stop: 01/15/20 15:22 Last Admin: 01/15/20 11:00 Dose: 2 mg Documented by: Ondansetron HCl (Zofran) 4 mg IVPUSH ONETIME ONE Stop: 01/14/20 11:43 Last Admin: 01/14/20 11:58 Dose: 4 mg Documented by: <Lucretia Bean - Last Filed: 01/16/20 13:17> Discharge Summary - Hospital Course Free Text/Narrative:: I have seen and evaluated the patient and agree with the residents note unless specified in my note - Referral to Home Health Primary Care Physician: PCP None - Discharge Diagnosis/Problem(s) (1) Colitis SNOMED Code(s): 09641072 ICD Code: K52.9 - NONINFECTIVE GASTROENTERITIS AND COLITIS, UNSPECIFIED Status: Acute (2) Acute pancreatitis SNOMED Code(s): 474523571 ICD Code: K85.90 - ACUTE PANCREATITIS WITHOUT NECROSIS OR INFECTION, UNSP Status: Acute - Patient Data Vitals - Most Recent: Last Vital Signs Temp 36.6 C 01/15/20 15:57 Pulse 65 01/15/20 15:57 Resp 18 01/15/20 15:57 BP 141/65 H 01/15/20 15:57 Pulse Ox 98 01/15/20 12:00 I&O - Last 24 hours: Intake & Output 01/15/20 01/16/20 01/16/20 22:59 06:59 14:59 Intake Total 1350 Output Total 1500 Balance -150 Med Orders - Current: Current Medications Discontinued Medications Albuterol/Ipratropium (Duoneb 3.0-0.5 Mg/3 Ml) 3 ml NEB Q4HRRT PRN PRN Reason: Shortness Of Breath/wheezing Famotidine (Pepcid) 20 mg IVPUSH ONETIME ONE Stop: 01/14/20 11:45 Last Admin: 01/14/20 11:57 Dose: 20 mg Documented by: Lactated Ringer's (Ringers, Lactated) 1,000 mls @ 125 mls/hr IV ASDIRECTED [facility] Last Admin: 01/15/20 05:38 Dose: 125 mls/hr Documented by: Ciprofloxacin/Dextrose 400 mg/ (Premix) 200 mls @ 200 mls/hr IV Q12H [facility] Last Admin: 01/15/20 19:13 Dose: Not Given Documented by: Metronidazole 500 mg/ Premix 100 mls @ 100 mls/hr IV Q8H [facility] Last Admin: 01/14/20 19:11 Dose: Not Given Documented by: Metronidazole 500 mg/ Premix 100 mls @ 100 mls/hr IV Q8H [facility] Last Admin: 01/15/20 11:20 Dose: 100 mls/hr Documented by: Influenza Virus Vaccine (Pharmacy To Dose - Influenza Vaccine) 1 each IM ONETIME ONE Stop: 01/14/20 16:12 Last Admin: 01/15/20 19:11 Dose: Not Given Documented by: Influenza Virus Vaccine (Fluzone Quad Syringe) 60 mcg IM .ONCE ONE Stop: 01/14/20 16:31 Last Admin: 01/15/20 19:12 Dose: Not Given Documented by: Influenza Virus Vaccine (Fluzone Quad Syringe) 60 mcg IM .ONCE ONE Stop: 01/15/20 09:01 Last Admin: 01/15/20 19:13 Dose: Not Given Documented by: Morphine Sulfate (Morphine) 4 mg IVPUSH ONETIME ONE Stop: 01/14/20 11:43 Last Admin: 01/14/20 11:57 Dose: 4 mg Documented by: Morphine Sulfate (Morphine) 4 mg IVPUSH ONETIME ONE Stop: 01/14/20 13:42 Last Admin: 01/14/20 13:52 Dose: 4 mg Documented by: Morphine Sulfate (Morphine) 2 mg IVPUSH Q4H PRN PRN Reason: Pain (severe 7-10) Stop: 01/15/20 15:22 Last Admin: 01/15/20 11:00 Dose: 2 mg Documented by: Nicotine (Habitrol) 14 mg TRDERM DAILY [facility] Last Admin: 01/15/20 09:32 Dose: 14 mg Documented by: Ondansetron HCl (Zofran) 4 mg IVPUSH ONETIME ONE Stop: 01/14/20 11:43 Last Admin: 01/14/20 11:58 Dose: 4 mg Documented by: Ondansetron HCl (Zofran) 4 mg IVPUSH Q4H PRN PRN Reason: Nausea/Vomiting Pantoprazole Sodium (Protonix Iv) 40 mg IV DAILY [facility] Last Admin: 01/15/20 09:31 Dose: 40 mg Documented by: Sodium Chloride (Saline Flush) 10 ml FLUSH ASDIRECTED PRN PRN Reason: Keep Vein Open Last Admin: 01/14/20 11:58 Dose: 10 ml Documented by: Sodium Chloride (Saline Flush) 2.5 ml FLUSH ASDIRECTED PRN PRN Reason: Keep Vein Open Last Admin: 01/14/20 11:58 Dose: 2.5 ml Documented by:
== END 2020-01-15 18:35 | disposition home or self-care (01) | DRG 391 ==
LOC: MW.ED 11:26 → MW.MS 13:25
PROVIDERS: ADMIT Student in an Organized Health Care Education/Training Program; ATTEND Student in an Organized Health Care Education/Training Program
DX: K52.9 Noninfective gastroenteritis and colitis, unspecified (principal); K85.90 Acute pancreatitis without necrosis or infection, unspecified; Z79.899 Other long term (current) drug therapy; Z20.828 Contact with and (suspected) exposure to other viral communicable diseases
CPT/HCPCS: 36415; 70450; 70450-26; 71046; 71046-26; 76705; 76705-26; 80048; 80053; 81001; 83690; 83735; 84100; 84484; 85025; 93005; 93010; 96374; 96375; 99221; 99238; 99284; 99285-25; A9270-GY; C9113; J0744; J2270; J2405; J3490; J7120; U0002

== ENCOUNTER 2022-12-13 10:21 | Emergency (ER) | payer SELFPAY ==
[2022-12-13] MEDS ORDERED: Sodium Chloride 0.9% 1,000 ML IV ONE (10:38)
[2022-12-13 11:25] LABS: HEMATOCRIT 39.3 % (38.0-50.0); HEMOGLOBIN 13.1 g/dL (13.0-17.0); MEAN CORPUSCULAR HEMOGLOBIN 29.7 pg (27.0-32.0); MEAN CORPUSCULAR HGB CONC 33.3 g/dL (31.0-37.0); MEAN CORPUSCULAR VOLUME 89.1 fL (80.0-98.0); NRBC ABSOLUTE 0 K/uL; PLATELET COUNT,PLT 217 K/uL (150-400); RED BLOOD CELL COUNT 4.41 M/uL (4.50-5.90); WHITE BLOOD CELL COUNT,WBC 18.96 K/uL (4.0-11.0)
[2022-12-13] MEDS ORDERED: Ondansetron 4 MG/2 ML SDV IVPUSH ONE (11:32)
[2022-12-13] MEDS ORDERED: Morphine 4 MG/ML Syringe IVPUSH STA (11:33)
[2022-12-13 11:48] LABS: LACTIC ACID 4.2 mmol/L (0.4-2.0)
[2022-12-13 11:50] LABS: A/G RATIO 0.3 (0.9-1.6); ALBUMIN 1.5 g/dL (3.4-5.0); BILIRUBIN TOTAL 6.6 mg/dL (0.2-1.0); CALCIUM 7.9 mg/dL (8.5-10.1); CREATININE 1.2 mg/dL (0.8-1.3); EST CRCL DRUG DOSING (CG) 61.97 mL/min; POTASSIUM,K 3.9 mmol/L (3.5-5.1); PROTEIN TOTAL,TP 6.3 g/dL (6.4-8.2)
[2022-12-13 11:55] LABS: BAND ABSOLUTE MAN 0.2; BAND PERCENT MAN 1 %; LYMPHOCYTES ABSOLUTE MAN 2.1 (0.6-2.4); LYMPHOCYTES PERCENT MAN 11 % (16.0-40.0); MONOCYTES ABSOLUTE MAN 1.9 (0.0-0.8); MONOCYTES PERCENT MAN 10 % (0.0-15.0); SEG NEUTROPHILS ABSOLUTE MAN 14.8 (1.4-5.7); SEG NEUTROPHILS PERCENT MAN 78 % (48.0-80.0)
[2022-12-13] MEDS ORDERED: Piperacillin/Tazobactam 4.5 GM in Sodium Chloride 0.9% 100 ML IV ONE (12:06)
[2022-12-13] MEDS ORDERED: 50% Dextrose in Water 50 ML Syringe IVPUSH ONE (12:26)
[2022-12-13] MEDS ORDERED: VANCOmycin 1.25 GM/250 ML 1.25 GM in Premix Bag 1 BAG IV ONE (12:30)
[2022-12-13 12:35] LABS: INR 1.66 (0.86-1.11)
[2022-12-13] MEDS ORDERED: Iopamidol 755 MG/ML 500 ML Multipack Bottle IVPUSH STA (12:37)
[2022-12-13 14:03] VITALS: BP 102/69; PULSE 82
[2022-12-13 14:32] LABS: APPEARANCE,URINE CLEAR; GLUCOSE,URINE 100 mg/dL (NEGATIVE); KETONES,URINE NEGATIVE (NEGATIVE); LEUKOCYTE ESTERASE,URINE NEGATIVE (NEGATIVE); NITRITE,URINE NEGATIVE (NEGATIVE); OCCULT BLOOD,URINE NEGATIVE (NEGATIVE); PH,URINE 5.5 (5.0-8.0); PROTEIN,URINE NEGATIVE (NEGATIVE); UROBILINOGEN,URINE 0.2 EU/dL (<2.0)
[2022-12-13 14:46] LABS: BILIRUBIN,URINE MODERATE (NEGATIVE); COLOR,URINE ORANGE
== END 2022-12-13 16:10 ==
LOC: MW.ED 10:21
DX: K72.00 Acute and subacute hepatic failure without coma (principal)
CPT/HCPCS: 36415; 71045; 74177; 80053; 81003; 83605; 83690; 84484; 85025; 85610; 87040; 93005; 96361; 96365; 96367; 96375; 99285; J2270; J2405; J2543; J3370; J3490; J7030; Q9967; 93010